=== PATIENT | male | born 1990 | race African-American/Black ===

== ENCOUNTER 2018-11-24 20:31 | Emergency (ER) | payer OTHER ==
[2018-11-24 21:03] VITALS: BP 112/65
--- NOTE | 2018-11-24 21:46 | UC ---
Lower Extremity/Ankle HPI - HPI Summary HPI Summary: PLAYING BASKETBALL THIS AFTERNOON WHEN HE LANDED AWKWARDLY ON HIS LEFT ANKLE AND SUSTAINED AN INVERSION INJURY. CONTINUED TO PLAY THE GAME BUT NOW HAS INCREASING PAIN AND SWELLING IN HIS LEFT LATERAL ANKLE. - History of Current Complaint Chief Complaint: UCLowerExtremity Stated Complaint: ANKLE INJURY Time Seen by Provider: 11/24/18 21:39 Hx Obtained From: Patient Onset/Duration: Sudden Onset, Lasting Hours, Still Present Severity Initially: Moderate Severity Currently: Moderate Pain Intensity: 7 Pain Scale Used: 0-10 Numeric Aggravating Factor(s): Standing, Ambulation Alleviating Factor(s): Rest, Elevation Able to Bear Weight: Yes - Allergies/Home Medications Allergies/Adverse Reactions: Allergies Allergy/AdvReac Type Severity Reaction Status Date / Time No Known Allergies Allergy Verified 11/24/18 21:03 Home Medications: Home Medications NK [No Home Medications Reported] 11/24/18 [History Confirmed 11/24/18] PMH/Surg Hx/FS Hx/Imm Hx Previously Healthy: Yes - Surgical History Surgical History: None - Family History Known Family History: Positive: Non-Contributory - Social History Alcohol Use: Weekly Substance Use Type: None Smoking Status (MU): Never Smoked Tobacco Review of Systems All Other Systems Reviewed And Are Negative: Yes Constitutional: Positive: Negative Skin: Positive: Negative Respiratory: Positive: Negative Cardiovascular: Positive: Negative Gastrointestinal: Positive: Negative Musculoskeletal: Positive: Arthralgia, Decreased ROM, Edema Physical Exam Triage Information Reviewed: Yes Appearance: Well-Appearing, No Pain Distress, Well-Nourished Vital Signs: Initial Vital Signs Temp 98.0 F 11/24/18 20:59 Pulse 77 11/24/18 20:59 Resp 16 11/24/18 20:59 BP 112/65 11/24/18 20:59 Pulse Ox 99 11/24/18 20:59 Vital Signs Reviewed: Yes Eyes: Positive: Conjunctiva Clear ENT: Positive: Hearing grossly normal Neck: Positive: Supple Respiratory: Positive: No respiratory distress, No accessory muscle use Cardiovascular: Positive: Pulses Normal Abdomen Description: Positive: Soft Musculoskeletal: Positive: ROM Limited @ - LEFT ANKLE, Edema @ - LEFT LATERAL ANKLE, Other: - TTP LEFT ANKLE LATERAL MALLEOLUS Neurological: Positive: Alert Psychological: Positive: Age Appropriate Behavior Skin: Negative: Rashes Diagnostics - Radiology LEFT ANKLE XRAY Radiology Interpretation Completed By: ED Physician Summary of Radiographic Findings: UNREMARKABLE Lower Extremity Course/Dx - Differential Dx/Diagnosis Provider Diagnosis: Left ankle sprain Discharge - Sign-Out/Discharge Documenting (check all that apply): Patient Departure All imaging exams completed and their final reports reviewed: No - Discharge Plan Condition: Stable Disposition: HOME Patient Education Materials: Ankle Sprain (ED) Referrals: [facility] [Provider Group] - If Needed Niraj Fuller MD [Medical Doctor] - If Needed Additional Instructions: XRAY TODAY NEGATIVE FOR FRACTURE OR DISLOCATION ON MY INITIAL INTERPRETATION. WE WILL CALL YOU IF THE RADIOLOGY READ DIFFERS. YOUR SYMPTOMS SHOULD IMPROVE SIGNIFICANTLY OVER THE NEXT 1-2 WEEKS. IF YOU DO NOT IMPROVE EXPECTED FOLLOW- UP WITH YOUR PCP OR ORTHO. YOU MAY BENEFIT FROM REPEAT IMAGING AT THAT TIME. OTC IBUPROFEN OR ALEVE NEEDED FOR DISCOMFORT. REST, ICE, COMPRESS, ELEVATE. KVNG WRAP, GEL SPLINT AND CRUTCHES NEEDED FOR SYMPTOM RELIEF. - Billing Disposition and Condition Condition: STABLE Disposition: Home
--- NOTE | 2018-11-25 07:42 | UC ---
- Progress Note Progress Note: Final left ankle x-ray report reviewed: NO ACUTE OSSEOUS INJURY. IF SYMPTOMS PERSIST, RECOMMEND REPEAT IMAGING. Wet read correct, no change in plan Course/Dx - Diagnoses Provider Diagnoses: Left ankle sprain Discharge - Sign-Out/Discharge Documenting (check all that apply): Post-Discharge Follow Up All imaging exams completed and their final reports reviewed: Yes - Discharge Plan Condition: Stable Disposition: HOME Patient Education Materials: Ankle Sprain (ED) Referrals: [facility] [Provider Group] - If Needed Niraj Fuller MD [Medical Doctor] - If Needed Additional Instructions: XRAY TODAY NEGATIVE FOR FRACTURE OR DISLOCATION ON MY INITIAL INTERPRETATION. WE WILL CALL YOU IF THE RADIOLOGY READ DIFFERS. YOUR SYMPTOMS SHOULD IMPROVE SIGNIFICANTLY OVER THE NEXT 1-2 WEEKS. IF YOU DO NOT IMPROVE EXPECTED FOLLOW- UP WITH YOUR PCP OR ORTHO. YOU MAY BENEFIT FROM REPEAT IMAGING AT THAT TIME. OTC IBUPROFEN OR ALEVE NEEDED FOR DISCOMFORT. REST, ICE, COMPRESS, ELEVATE. KVNG WRAP, GEL SPLINT AND CRUTCHES NEEDED FOR SYMPTOM RELIEF. - Billing Disposition and Condition Condition: STABLE Disposition: Home
== END 2018-11-24 22:16 | disposition home or self-care (01) ==
LOC: UCEAST 20:31
DX: S93.402A Sprain of unspecified ligament of left ankle, initial encounter (principal); W18.39XA Other fall on same level, initial encounter; Y93.67 Activity, basketball; X50.1XXA Overexertion from prolonged static or awkward postures, initial encounter; Y92.9 Unspecified place or not applicable
CPT/HCPCS: 99203; G0463